=== PATIENT | male | born 1970 | race Caucasian/White ===

== ENCOUNTER 2017-12-21 08:55 | Emergency (ER) | payer OTHER ==
[2017-12-21] MEDS ORDERED: SODIUM CHLORIDE 0.9% 1,000 ML IV STA (09:07)
[2017-12-21] MEDS ORDERED: DEXAMETHASONE SOD PHOSPHATE 10 MG/ML 1 ML VIAL IV STA (09:14)
[2017-12-21] MEDS ORDERED: IPRATROPIUM-ALBUTEROL 3 ML NEB INHALATION STA (09:14)
[2017-12-21] MEDS ORDERED: ACETAMINOPHEN TAB 500 MG TAB PO STA (09:15)
--- NOTE | 2017-12-21 09:18 | ED ---
General Adult HPI - General Chief complaint: Syncope Stated complaint: syncope Time Seen by Provider: 12/21/17 09:06 Source: patient, RN notes reviewed Mode of arrival: wheelchair Limitations: no limitations - History of Present Illness Initial comments: 47-year-old male presenting with syncopal episode. Patient states he was at work, coworkers said that his eyes rolled back and said, he fell he did strike the back of his head when he fell. Patient was unconscious for approximately 1 minute. Patient states that over the past 3 days he said nausea vomiting diarrhea. Proximally 2-3 episodes of both vomiting and diarrhea daily. He states he was feeling better this morning and went to work. He is also had fever and chills, rhinorrhea and mild sore throat. Patient reports mild cough, he is a daily smoker. Denies any preceding chest pain or palpitations. He does state he gets chest pain from time to time which his primary care physician is aware of. Denies abdominal pain. - Related Data Home Medications Medication Instructions Recorded Confirmed Valsartan/Hydrochlorothiazide 1 tab PO DAILY 12/21/17 12/21/17 [Diovan Hct 160-25 mg Tablet] Previous Rx's Medication Instructions Recorded Albuterol Inhaler [Ventolin Hfa 1 - 2 puff INHALATION Q4HR PRN #1 12/21/17 Inhaler] inhaler Allergies Allergy/AdvReac Type Severity Reaction Status Date / Time No Known Allergies Allergy Verified 12/21/17 09:53 Review of Systems ROS Statement: Those systems with pertinent positive or pertinent negative responses have been documented in the HPI. ROS Other: All systems not noted in ROS Statement are negative. Past Medical History Past Medical History: Hypertension History of Any Multi-Drug Resistant Organisms: None Reported Past Surgical History: Hernia Repair, Tonsillectomy Past Psychological History: No Psychological Hx Reported Smoking Status: Current every day smoker Past Alcohol Use History: Daily Past Drug Use History: None Reported General Exam Limitations: no limitations General appearance: alert, in no apparent distress Head exam: Present: atraumatic, normocephalic Eye exam: Present: normal appearance, PERRL ENT exam: Present: other (Mild pharyngeal erythema, bilateral nasal congestion) Neck exam: Present: normal inspection. Absent: tenderness, meningismus Respiratory exam: Present: wheezes. Absent: respiratory distress Cardiovascular Exam: Present: regular rate, normal rhythm GI/Abdominal exam: Present: soft. Absent: distended, tenderness, guarding Extremities exam: Present: normal inspection, normal capillary refill. Absent: pedal edema, calf tenderness Back exam: Present: normal inspection, full ROM. Absent: tenderness Neurological exam: Present: alert, oriented X3, CN II-XII intact. Absent: motor sensory deficit Psychiatric exam: Present: normal affect, normal mood Skin exam: Present: warm, dry, intact. Absent: cyanosis, diaphoretic Course Vital Signs 12/21/17 12/21/17 12/21/17 09:03 09:54 10:03 Temperature 101.6 F H Pulse Rate 100 96 93 Respiratory 20 Rate Blood Pressure 130/76 O2 Sat by Pulse 99 Oximetry EKG Findings - EKG Comments: EKG Findings:: EKG: Normal sinus rhythm, ventricular rate 94, SC interval 124, QRS duration 82, QTC 425, no signs of acute ischemia Medical Decision Making - Medical Decision Making 47-year-old male presenting with flulike symptoms and syncopal episode. Patient clinically appears dehydrated. EKG is normal sinus with no ischemic changes. Chest x-ray obtained, shows active airway pattern, no focal pneumonia. Patient is wheezing on exam, given albuterol, and steroids. CBC within normal limits, sodium and chloride both mildly low. Patient is positive for influenza A. He is outside of treatment window. He is given IV hydration, he will stay home from work and rest, maintain oral hydration. Return with any worsening symptoms or worsening dyspnea. - Lab Data Result diagrams: 12/21/17 09:23 12/21/17 09:23 Lab Results 12/21/17 12/21/17 12/21/17 Range/Units 09:23 09:23 09:23 WBC 6.3 (3.8-10.6) k/uL RBC 5.30 (4.30-5.90) m/uL Hgb 16.3 (13.0-17.5) gm/dL Hct 45.3 (39.0-53.0) % MCV 85.6 (80.0-100.0) fL MCH 30.8 (25.0-35.0) pg MCHC 36.0 (31.0-37.0) g/dL RDW 12.6 (11.5-15.5) % Plt Count 184 (150-450) k/uL Neutrophils % 76 % Lymphocytes % 9 % Monocytes % 9 % Eosinophils % 2 % Basophils % 2 % Neutrophils # 4.8 (1.3-7.7) k/uL Lymphocytes # 0.6 L (1.0-4.8) k/uL Monocytes # 0.6 (0-1.0) k/uL Eosinophils # 0.1 (0-0.7) k/uL Basophils # 0.1 (0-0.2) k/uL Sodium 133 L (137-145) mmol/L Potassium 4.8 (3.5-5.1) mmol/L Chloride 94 L (98-107) mmol/L Carbon Dioxide 28 (22-30) mmol/L Anion Gap 11 mmol/L BUN 12 (9-20) mg/dL Creatinine 0.97 (0.66-1.25) mg/dL Est GFR (CKD-EPI)AfAm >90 (>60 ml/min/1.73 sqM) Est GFR (CKD-EPI)NonAf >90 (>60 ml/min/1.73 sqM) Glucose 105 H (74-99) mg/dL Calcium 9.3 (8.4-10.2) mg/dL Magnesium 1.8 (1.6-2.3) mg/dL Total Bilirubin 0.7 (0.2-1.3) mg/dL AST 59 (17-59) U/L ALT 49 (21-72) U/L Alkaline Phosphatase 56 (38-126) U/L Total Protein 7.1 (6.3-8.2) g/dL Albumin 4.2 (3.5-5.0) g/dL Urine Color Urine Appearance (Clear) Urine pH (5.0-8.0) Ur Specific [place] (1.001-1.035) Urine Protein (Negative) Urine Glucose (UA) (Negative) Urine Ketones (Negative) Urine Blood (Negative) Urine Nitrite (Negative) Urine Bilirubin (Negative) Urine Urobilinogen (<2.0) mg/dL Ur Leukocyte Esterase (Negative) Influenza Type A RNA Detected H (Not Detectd) Influenza Type B (PCR) Not Detected (Not Detectd) 12/21/17 Range/Units 09:23 WBC (3.8-10.6) k/uL RBC (4.30-5.90) m/uL Hgb (13.0-17.5) gm/dL Hct (39.0-53.0) % MCV (80.0-100.0) fL MCH (25.0-35.0) pg MCHC (31.0-37.0) g/dL RDW (11.5-15.5) % Plt Count (150-450) k/uL Neutrophils % % Lymphocytes % % Monocytes % % Eosinophils % % Basophils % % Neutrophils # (1.3-7.7) k/uL Lymphocytes # (1.0-4.8) k/uL Monocytes # (0-1.0) k/uL Eosinophils # (0-0.7) k/uL Basophils # (0-0.2) k/uL Sodium (137-145) mmol/L Potassium (3.5-5.1) mmol/L Chloride (98-107) mmol/L Carbon Dioxide (22-30) mmol/L Anion Gap mmol/L BUN (9-20) mg/dL Creatinine (0.66-1.25) mg/dL Est GFR (CKD-EPI)AfAm (>60 ml/min/1.73 sqM) Est GFR (CKD-EPI)NonAf (>60 ml/min/1.73 sqM) Glucose (74-99) mg/dL Calcium (8.4-10.2) mg/dL Magnesium (1.6-2.3) mg/dL Total Bilirubin (0.2-1.3) mg/dL AST (17-59) U/L ALT (21-72) U/L Alkaline Phosphatase (38-126) U/L Total Protein (6.3-8.2) g/dL Albumin (3.5-5.0) g/dL Urine Color Yellow Urine Appearance Clear (Clear) Urine pH 6.0 (5.0-8.0) Ur Specific [place] 1.018 (1.001-1.035) Urine Protein Trace H (Negative) Urine Glucose (UA) Negative (Negative) Urine Ketones Negative (Negative) Urine Blood Negative (Negative) Urine Nitrite Negative (Negative) Urine Bilirubin Negative (Negative) Urine Urobilinogen 2.0 (<2.0) mg/dL Ur Leukocyte Esterase Negative (Negative) Influenza Type A RNA (Not Detectd) Influenza Type B (PCR) (Not Detectd) Disposition Clinical Impression: Dehydration, Syncope due to orthostatic hypotension, Influenza A Disposition: HOME SELF-CARE Condition: Good Instructions: Influenza (ED), Syncope (ED) Prescriptions: Albuterol Inhaler [Ventolin Hfa Inhaler] 1 - 2 puff INHALATION Q4HR PRN #1 inhaler PRN Reason: Shortness Of Breath Referrals: Howard Byrnes MD [Primary Care Provider] - 1-2 days Time of Disposition: 10:30 Decision to Admit Reason: Admit from EC Decision Date: 12/21/17 Decision Time: 10:23
--- NOTE | 2017-12-21 09:45 | XR ---
EXAMINATION TYPE: XR chest 2V DATE OF EXAM: 12/21/2017 COMPARISON: Prior chest 05/05/2016 HISTORY: Cough, fever, congestion and 60 TECHNIQUE: Frontal and lateral views of the chest are obtained. FINDINGS: There is no focal air space opacity, pleural effusion, or pneumothorax seen. The cardiac silhouette size is within normal limits. The osseous structures are intact. There is bronchial wall thickening. IMPRESSION: Correlate for bronchitis, reactive airways disease.
[2017-12-21 09:53] LABS: Appearance,Urine Clear (Clear); Bilirubin,Urine Negative (Negative); Blood,Urine Negative (Negative); Color,Urine Yellow; Glucose,Urine (UA) Negative (Negative); Ketones,Urine Negative (Negative); Leukocyte Esterase,Urine Negative (Negative); Nitrite,Urine Negative (Negative); Protein,Urine Trace (Negative); Specific Gravity,Urine 1.018 (1.001-1.035)
[2017-12-21 09:54] LABS: Basophils # (A) 0.1 k/uL (0-0.2); Basophils % (A) 2 %; Eosinophils # (A) 0.1 k/uL (0-0.7); Eosinophils % (A) 2 %; HCT 45.3 % (39.0-53.0); HGB 16.3 gm/dL (13.0-17.5); Lymphocytes # (A) 0.6 k/uL (1.0-4.8); Lymphocytes % (A) 9 %; MCH 30.8 pg (25.0-35.0); MCV 85.6 fL (80.0-100.0); Mean Platelet Volume 7.6; Monocytes # (A) 0.6 k/uL (0-1.0); Monocytes % (A) 9 %; Neutrophils # (A) 4.8 k/uL (1.3-7.7); Neutrophils % (A) 76 %; Platelet Count 184 k/uL (150-450); RDW 12.6 % (11.5-15.5); WBC 6.3 k/uL (3.8-10.6)
[2017-12-21 10:03] LABS: ALT 49 U/L (21-72); AST 59 U/L (17-59); Albumin 4.2 g/dL (3.5-5.0); Alkaline Phosphatase 56 U/L (38-126); Anion Gap 11 mmol/L; Blood Urea Nitrogen 12 mg/dL (9-20); Calcium 9.3 mg/dL (8.4-10.2); Carbon Dioxide 28 mmol/L (22-30); Chloride 94 mmol/L (98-107); Glucose 105 mg/dL (74-99); Magnesium 1.8 mg/dL (1.6-2.3); Sodium 133 mmol/L (137-145); Total Bilirubin 0.7 mg/dL (0.2-1.3); Total Protein 7.1 g/dL (6.3-8.2)
[2017-12-21 10:06] LABS: Potassium 4.8 mmol/L (3.5-5.1)
[2017-12-21 10:17] LABS: Creatine Kinase 383 U/L (55-170)
[2017-12-21 10:28] LABS: Creatine Kinase MB <0.2 ng/mL (0.0-2.4); Troponin I <0.012 ng/mL (0.000-0.034)
[2017-12-21 10:34] LABS: INR 1.1 (<1.2); Partial Thromboplastin Time 24.5 sec (22.0-30.0); Prothrombin Time 10.4 sec (9.0-12.0)
[2017-12-21 10:48] VITALS: BP 124/61; PULSE 92; RESP 17; TEMP 99.3
== END 2017-12-21 10:46 | disposition home or self-care (01) ==
LOC: EC 08:55
DX: I95.1 Orthostatic hypotension (principal); E86.0 Dehydration; J10.1 Influenza due to other identified influenza virus with other respiratory manifestations; I10 Essential (primary) hypertension; F17.200 Nicotine dependence, unspecified, uncomplicated; Z79.899 Other long term (current) drug therapy
CPT/HCPCS: 36415; 94640; 93005; 80053; 82550; 82553; 83605; 83735; 84484; 85025; 85610; 85730; 81003; 87502; 71046; 99284; 96374; 96361; J1100

== ENCOUNTER 2018-10-16 02:46 | Observation (INO) | payer OTHER ==
[2018-10-16] MEDS ORDERED: MORPHINE SULFATE/PF 10MG/10ML VL IVP PRN (06:13)
[2018-10-16] MEDS ORDERED: NITROGLYCERIN SL TABS 0.4 MG TAB SUBLINGUAL PRN (06:15)
[2018-10-16 09:13] LABS: Creatine Kinase 122 U/L (55-170)
[2018-10-16 09:27] LABS: Creatine Kinase MB 0.3 ng/mL (0.0-2.4); Troponin I <0.012 ng/mL (0.000-0.034)
--- NOTE | 2018-10-16 10:20 | P.CRDCN ---
History of Present Illness Consult date: 10/16/18 Chief complaint: Chest pain History of present illness: This is a pleasant 48-year-old gentleman with a past medical history significant for hypertension as well as significant history of smoking was transferred from [facility] for further evaluation of chest discomfort. The patient was in his usual state of health yesterday when he started experiencing chest discomfort, in the mid of the chest, as a sharp kind of discomfort, of brief in duration, without any radiation to the arm or neck or shoulders, and without any assistive his symptoms of shortness of breath, dizziness, sweating, nausea or vomiting, or syncope. The EKG showed sinus rhythm without any ST or T-wave abnormalities. We only have one set of enzymes at this point. Currently the patient is chest pain-free. The patient does have hypertension and he stated that he was not taking his medication or regular basis because it does make him sick. Also he does smoke about 1 pack of cigarettes a day and he is working on smoking cessation. No immediate family members with coronary artery disease. Past Medical History Past Medical History: Hyperlipidemia, Hypertension History of Any Multi-Drug Resistant Organisms: None Reported Past Surgical History: Hernia Repair, Tonsillectomy Past Anesthesia/Blood Transfusion Reactions: No Reported Reaction Additional Past Anesthesia/Blood Transfusion Reaction / Comment(s): patient states that it takes him a long time to wake up after anesthesia Past Psychological History: No Psychological Hx Reported Smoking Status: Current every day smoker Past Alcohol Use History: Daily Additional Past Alcohol Use History / Comment(s): drinks 4 beers daily after work Past Drug Use History: None Reported - Past Family History Mother History Unknown: Yes Father Family Medical History: Diabetes Mellitus, Hypertension Brother(s) History Unknown: Yes Sister(s) Family Medical History: No Reported History Son(s) Family Medical History: No Reported History Daughter(s) Family Medical History: No Reported History Medications and Allergies Home Medications Medication Instructions Recorded Confirmed Type Valsartan/Hydrochlorothiazide 1 tab PO DAILY 12/21/17 10/16/18 History [Diovan Hct 160-25 mg Tablet] Allergies Allergy/AdvReac Type Severity Reaction Status Date / Time No Known Allergies Allergy Verified 10/16/18 05:19 Physical Exam Vitals: Vital Signs Temp Pulse Resp BP Pulse Ox 10/16/18 07:54 98.7 F 90 16 134/77 96 10/16/18 05:10 16 Intake and Output 10/15/18 10/16/18 10/16/18 22:59 06:59 14:59 Other: Voiding Method Toilet Toilet # Voids 1 Weight 91.6 kg - Constitutional General appearance: no acute distress - Respiratory Respiratory: bilateral: CTA - Cardiovascular Rhythm: regular Heart sounds: normal: S1, S2 Results Cardiac Enzymes 10/16/18 Range/Units 08:17 CK-MB (CK-2) 0.3 (0.0-2.4) ng/mL Troponin I <0.012 (0.000-0.034) ng/mL Current Medications Generic Name Dose Route Start Last Admin Trade Name Freq PRN Reason Stop Dose Admin Aspirin 325 mg 10/16/18 09:00 Aspirin PO DAILY ÁNGEL Morphine Sulfate 4 mg 10/16/18 06:13 Morphine Sulfate IVP Q4HR PRN Chest Pain Nitroglycerin 0.4 mg 10/16/18 06:15 Nitrostat SUBLINGUAL Q5M PRN Chest Pain Intake and Output 10/15/18 10/16/18 10/16/18 22:59 06:59 14:59 Other: Voiding Method Toilet Toilet # Voids 1 Weight 91.6 kg Assessment and Plan Assessment: Assessment #1 atypical chest discomfort #2 hypertension #3 smoking Plan #1 rule out acute coronary event. I will follow-up with the serial cardiac enzymes. #2 if the ACS was ruled out, I will schedule the patient to undergo stress echocardiogram #3 follow-up with the patient. Thank you for allowing us participate in the care of the patient and we'll continue following up with him
[2018-10-16] MEDS: ASPIRIN 325 MG TAB PO SCH (10:42)
[2018-10-16 11:21] LABS: Cholesterol 198 mg/dL (<200); HDL Cholesterol 29 mg/dL (40-60); Triglycerides 412 mg/dL (<150)
[2018-10-16 15:45] LABS: Creatine Kinase 111 U/L (55-170)
[2018-10-16 15:58] LABS: Creatine Kinase MB 0.3 ng/mL (0.0-2.4); Troponin I <0.012 ng/mL (0.000-0.034)
--- NOTE | 2018-10-16 16:40 | P.HPIM ---
History of Present Illness H&P Date: 10/16/18 Chief Complaint: Chest pain Mr. Israel is a 48-year-old male with a past medical history of hypertension, smoking coming into the hospital with a chief complaint of chest discomfort. The patient has been transferred from [facility] due to ongoing chest pain. Patient states that he was trying to get some rest last night when he felt the chest pain. The chest pain is mostly on the left side of the chest that was radiating all to the precordium. The pain lasted for few minutes. No radiation to the neck or shoulder. Patient denies having any difficulty in breathing at that time. But states that he felt dizzy and almost fell but caught himself without falling with the help of a table. Then he waited for his to get back from work and decided to go to the hospital. Risk factors include smoking for the past 20 years. He has been smoking 2 packs per day but currently only one pack a day. Patient is noncompliant with his hypertensive medications. He states that he does not have a primary care physician to follow-up for his medications. Patient denies having any family history of coronary artery disease. Review of Systems REVIEW OF SYSTEMS: PSYCH: Normal psychiatric exam NEURO:No c/o weakness of the extremties, No facial droop, No speech abnormalities. VASCULAR: Peripheral nervous system within the normal limits no edema HEMATOLOGIC: No history of easy bleeding and bruising . No recent infections . RESPIRATORY: No cough, No SOB, No chest discomfort. IMMUNE: No infections INTEGUMENT: no rashes OPHTHALMOLOGIC: No blurry vision and no eye discharge : No dysuria or hematuria CARDIAC: As per HPI MUSCULOSKELETAL : No Aches or pains in the joints or muscles. GI: No abdominal pain, Nausea or vomiting. No constipation or diarrhea. Past Medical History Past Medical History: Hyperlipidemia, Hypertension History of Any Multi-Drug Resistant Organisms: None Reported Past Surgical History: Hernia Repair, Tonsillectomy Past Anesthesia/Blood Transfusion Reactions: No Reported Reaction Additional Past Anesthesia/Blood Transfusion Reaction / Comment(s): patient states that it takes him a long time to wake up after anesthesia Past Psychological History: No Psychological Hx Reported Smoking Status: Current every day smoker Past Alcohol Use History: Daily Additional Past Alcohol Use History / Comment(s): drinks 4 beers daily after work Past Drug Use History: None Reported - Past Family History Mother History Unknown: Yes Father Family Medical History: Diabetes Mellitus, Hypertension Brother(s) History Unknown: Yes Sister(s) Family Medical History: No Reported History Son(s) Family Medical History: No Reported History Daughter(s) Family Medical History: No Reported History Medications and Allergies Home Medications Medication Instructions Recorded Confirmed Type Valsartan/Hydrochlorothiazide 1 tab PO DAILY 12/21/17 10/16/18 History [Diovan Hct 160-25 mg Tablet] Allergies Allergy/AdvReac Type Severity Reaction Status Date / Time No Known Allergies Allergy Verified 10/16/18 05:19 Physical Exam Vitals: Vital Signs Temp Pulse Pulse Resp BP Pulse Ox 10/16/18 15:08 98.2 F 98 16 154/85 10/16/18 12:39 69 10/16/18 11:00 98.6 F 83 15 155/87 98 10/16/18 07:54 98.7 F 90 16 134/77 96 10/16/18 05:10 16 Intake and Output 10/16/18 10/16/18 10/16/18 06:59 14:59 22:59 Intake Total 720 Balance 720 Intake: Oral 720 Other: Voiding Method Toilet Toilet Toilet # Voids 1 1 Weight 91.6 kg GENERAL EXAM GEN. APPEARANCE: alert, in no apparent distress HEAD EXAM: atraumatic, normocephalic, normal inspection EYE EXAM: normal appearance, PERRL, EOMI. Absent: scleral icterus, conjunctival injection, periorbital swelling ENT EXAM: normal exam, mucous membranes moist NECK EXAM: normal inspection. Absent: tenderness, meningismus, full ROM, lymphadenopathy RESPIRATORY EXAM: normal lung sounds bilaterally. Absent: respiratory distress , wheezes, rales, rhonchi, stridor CARDIOVASCULAR EXAM: regular rate, normal rhythm, normal heart sounds. Absent : systolic murmur, diastolic murmur, rubs, gallop, clicks GI/ABDOMINAL EXAM: soft, normal bowel sounds. Absent: distended, tenderness, guarding, rebound, rigid EXTREMITIES EXAM: normal inspection, full ROM, normal capillary refill. Absent : tenderness, pedal edema, joint swelling, calf tenderness BACK EXAM: normal inspection NEUROLOGICAL EXAM: alert, oriented X3, no focal deficits PSYCHIATRIC EXAM: normal affect, normal mood SKIN EXAM: warm, dry, intact, normal color. Absent: rash Results Labs: Abnormal Lab Results - Last 24 Hours (Table) 10/16/18 Range/Units 08:17 Triglycerides 412 H (<150) mg/dL HDL Cholesterol 29 L (40-60) mg/dL Thrombosis Risk Factor Assmnt - Choose All That Apply Any of the Below Risk Factors Present?: Yes Each Factor Represents 1 point: Age 41-60 years, Obesity (BMI >25) Other Risk Factors: No Other congenital or acquired thrombophilia - If yes, enter type in comment: No Thrombosis Risk Factor Assessment Total Risk Factor Score: 2 Thrombosis Risk Factor Assessment Level: Low Risk Assessment and Plan Assessment: ASSESSMENT Atypical chest pain Hypertension Current active smoker PLAN: Patient has risk factors of hypertension and smoking so he has been admitted to rule out acute coronary syndrome. Patient will have serial troponins and EKGs. Cardiology on board. Patient might need stress echocardiogram if the cardiac enzymes are within normal limits. Extensively counseled the patient on quitting smoking. Further recommendations depending on the progress of the patient.
[2018-10-16 17:48] LABS: Basophils # (A) 0.1 k/uL (0-0.2); Basophils % (A) 1 %; Eosinophils # (A) 0.3 k/uL (0-0.7); Eosinophils % (A) 4 %; HCT 46.1 % (39.0-53.0); HGB 15.5 gm/dL (13.0-17.5); Lymphocytes # (A) 2.2 k/uL (1.0-4.8); Lymphocytes % (A) 28 %; MCHC 33.6 g/dL (31.0-37.0); MCV 92.1 fL (80.0-100.0); Mean Platelet Volume 7.9; Monocytes # (A) 0.4 k/uL (0-1.0); Monocytes % (A) 5 %; Neutrophils # (A) 4.9 k/uL (1.3-7.7); Neutrophils % (A) 61 %; Platelet Count 194 k/uL (150-450); RBC 5.01 m/uL (4.30-5.90)
[2018-10-16 18:00] LABS: ALT 32 U/L (21-72); AST 22 U/L (17-59); Albumin 3.7 g/dL (3.5-5.0); Alkaline Phosphatase 50 U/L (38-126); Anion Gap 5 mmol/L; Blood Urea Nitrogen 13 mg/dL (9-20); Calcium 9.2 mg/dL (8.4-10.2); Carbon Dioxide 26 mmol/L (22-30); Chloride 109 mmol/L (98-107); Glucose 130 mg/dL (74-99); Potassium 4.6 mmol/L (3.5-5.1); Sodium 140 mmol/L (137-145); Total Bilirubin 0.5 mg/dL (0.2-1.3); Total Protein 6.3 g/dL (6.3-8.2)
[2018-10-16 19:12] VITALS: RESP 18
[2018-10-16 20:57] LABS: Creatine Kinase 175 U/L (55-170)
[2018-10-16 21:13] LABS: Creatine Kinase MB 0.4 ng/mL (0.0-2.4); Troponin I <0.012 ng/mL (0.000-0.034)
[2018-10-17] MEDS ORDERED: HYDROCHLOROTHIAZIDE 25 MG TAB PO SCH (09:00)
[2018-10-17] MEDS ORDERED: LOSARTAN 50 MG TAB PO SCH (09:00)
[2018-10-17] MEDS ORDERED: VALSARTAN 160 MG TAB PO SCH (09:00)
--- NOTE | 2018-10-17 10:50 | P.PN ---
Subjective This is a pleasant 48-year-old male past medical history significant for hypertension, dyslipidemia, chronic nicotine dependence and daily alcohol use. He continues to complain of ongoing episodes of an achy type sensation in the midsternal region with radiation to the left shoulder. These episodes occurred overnight intermittently lasting a few minutes each time with associated shortness of breath. The episodes subside on their own with no specific alleviating factor. He denies palpitations or dizziness. He states he has not been taking his Diovan as prescribed secondary to causing symptoms of dizziness , generalized fatigue and nausea. Blood pressure this morning 175/89 heart rate 64 afebrile maintaining oxygen saturation on room air. GENERAL: Well-appearing, well-nourished and in no acute distress. NECK: Supple without JVD or thyromegaly. LUNGS: Breath sounds clear to auscultation bilaterally. Respiration equal and unlabored. No wheezes, rales or rhonchi. HEART: Regular rate and rhythm without murmurs, rubs or gallops. S1 and S2 heard. EXTREMITIES: Normal range of motion, no edema. No clubbing or cyanosis. Peripheral pulses intact. ASSESSMENT Chest pain, atypical. An acute coronary event has been ruled out with no EKG evidence of ischemia and negative cardiac enzymes. Hypertension Dyslipidemia Chronic nicotine dependence Daily alcohol abuse PLAN An acute coronary event has been ruled out. Obtain 2D echocardiogram and doppler study to assess cardiac structure and function. Perform stress echocardiogram to assess for stress induced ischemia. Discontinue Diovan and start him on losartan 25 mg daily. Recommend lifestyle modifications for lowering of triglycerides and cholesterol. Smoking and alcohol cessation recommended. If stress test is negative he is stable from a cardiac perspective. Follow up with Dr. Guillory upon discharge. Nurse Practitioner note has been reviewed, I agree with a documented findings and plan of care. Patient was seen and examined. Objective - Vital Signs Vital signs: Vital Signs Temp 97.9 F 10/17/18 07:15 Pulse 64 10/17/18 07:15 Resp 18 10/17/18 07:15 BP 175/89 10/17/18 07:15 Pulse Ox 98 10/17/18 07:15 Intake & Output 10/16/18 10/17/18 10/17/18 18:59 06:59 18:59 Intake Total 720 Balance 720 Intake: Oral 720 Other: Voiding Method Toilet Toilet # Voids 1 2 - Labs CBC & Chem 7: 10/16/18 17:30 10/16/18 17:30 Labs: Abnormal Lab Results - Last 24 Hours (Table) 10/16/18 10/16/18 10/16/18 Range/Units 08:17 17:30 19:56 Chloride 109 H (98-107) mmol/L Glucose 130 H (74-99) mg/dL Total Creatine Kinase 175 H (55-170) U/L Triglycerides 412 H (<150) mg/dL HDL Cholesterol 29 L (40-60) mg/dL
[2018-10-17 11:54] VITALS: BP 167/100; PULSE 81; TEMP 98.1
[2018-10-17] MEDS: ASPIRIN 325 MG TAB PO SCH (11:59)
--- NOTE | 2018-10-17 17:05 | ECHOF ---
Referral Reason:cp, sob MEASUREMENTS -------- HEIGHT: 175.3 cm WEIGHT: 91.2 kg BP: 175/89 IVSd: 1.2 cm (0.6 - 1.1) LVIDd: 4.5 cm (3.9 - 5.3) LVPWd: 1.5 cm (0.6 - 1.1) IVSs: 1.5 cm LVIDs: 3.7 cm LVPWs: 1.5 cm LA Diam: 3.4 cm (2.7 - 3.8) RVIDd: 2.6 cm (< 3.3) LAESV Index (A-L): 23.01 ml/m Ao Diam: 3.2 cm (2.0 - 3.7) LA Diam: 4.4 cm (2.7 - 3.8) AV Cusp: 2.2 cm (1.5 - 2.6) EPSS: 0.2 cm MV E Osbaldo: 0.63 m/s MV DecT: 155 ms MV A Osbaldo: 0.49 m/s MV E/A Ratio: 1.29 RAP: 5.00 mmHg RVSP: 17.74 mmHg MV EF SLOPE: 181.02 mm/s (70 - 150) MV EXCURSION: 25.68 mm (> 18.000) FINDINGS -------- Sinus rhythm. This was a technically good study. The left ventricular size is normal. There is mild concentric left ventricular hypertrophy. Overa ll left ventricular systolic function is normal with, an EF between 55 - 60 %. The right ventricle is normal in size. The left atrial size is normal. The right atrial size is normal. The aortic valve is trileaflet, and appears structurally normal. No aortic stenosis or regurgitation. Mild mitral annular calcification present. Mild mitral regurgitation is present. Mild tricuspid regurgitation present. There is no evidence of pulmonary hypertension. The right v entricular systolic pressure, as measured by Doppler, is 17.74mmHg. There is no pulmonic regurgitation present. The aortic root size is normal. There is no pericardial effusion. CONCLUSIONS -------- 1. The left ventricular size is normal. 2. There is mild concentric left ventricular hypertrophy. 3. Overall left ventricular systolic function is normal with, an EF between 55 - 60 %. 4. The right ventricle is normal in size. 5. The left atrial size is normal. 6. The right atrial size is normal. 7. The aortic valve is trileaflet, and appears structurally normal. No aortic stenosis or regurgitati on. 8. Mild mitral annular calcification present. 9. Mild mitral regurgitation is present. 10. Mild tricuspid regurgitation present. 11. There is no evidence of pulmonary hypertension. 12. The right ventricular systolic pressure, as measured by Doppler, is 17.74mmHg. 13. There is no pulmonic regurgitation present. 14. The aortic root size is normal. 15. There is no pericardial effusion. INJECTION MOLDER: Ebony Zarate RDCS
--- NOTE | 2018-10-17 23:50 | P.DS ---
Providers Date of admission: 10/16/18 04:38 Expected date of discharge: 10/17/18 Attending physician: Corine Gupta Consults: 10/16/18 06:06 Consult Physician Routine Consulting Provider: Sergio Andres Consult Reason/Comments: chest pain Do you want consulting provider notified?: Yes, Notify in am Primary care physician: Stated None Hospital Course: Mr. Israel is a 48-year-old male with a past medical history of hypertension, smoking coming into the hospital with a chief complaint of chest discomfort. The patient has been transferred from [facility] due to ongoing chest pain. Patient states that he was trying to get some rest last night when he felt the chest pain. The chest pain is mostly on the left side of the chest that was radiating all to the precordium. The pain lasted for few minutes. No radiation to the neck or shoulder. Patient denies having any difficulty in breathing at that time. But states that he felt dizzy and almost fell but caught himself without falling with the help of a table. Then he waited for his to get back from work and decided to go to the hospital. Risk factors include smoking for the past 20 years. He has been smoking 2 packs per day but currently only one pack a day. Patient is noncompliant with his hypertensive medications. He states that he does not have a primary care physician to follow-up for his medications. Patient denies having any family history of coronary artery disease. On 10/17/18 - Pt had the stress test done this morning. Results were still pending and pt left AMA. DISCHARGE DIAGNOSIS Atypical chest pain Hypertension Current active smoker PATIENT LEFT THE HOSPITAL AGAINST MEDICAL ADVICE . Patient Condition at Discharge: Undetermined Plan - Discharge Summary Discharge Rx Participant: No New Discharge Prescriptions: New Losartan [Cozaar] 50 mg PO DAILY #90 tab Discontinued Valsartan/Hydrochlorothiazide [Diovan Hct 160-25 mg Tablet] 1 tab PO DAILY Discharge Medication List Losartan [Cozaar] 50 mg PO DAILY #90 tab 10/17/18 [Rx] Follow up Appointment(s)/Referral(s): Sergio Andres MD [STAFF PHYSICIAN] - 2 Weeks Discharge Disposition: Left Against Medical Advice
--- NOTE | 2018-10-18 10:41 | ECHOS ---
Stress Test Note Stress Test Results/Findings: Exam Performed: stress echo exercise Exam Date: 10/17/18 Reason for Exam: CHEST PAIN Height: 5 ft 9 in Weight: 91.6 kg Protocol: EARNEST Stage: 3 Duration of Exercise: 7:00 Resting Heart Rate: 78 Resting Blood Pressure: 139/85 Maximum Achieved Heart Rate: 157 Maximum Achieved Blood Pressure: 198/91 85% PMHR: 146 100% PMHR: 172 METS: 8.5 Technologist Comment: Stress Test Results/Findings: Baseline heart is 78 beats a minute, Baseline blood pressure 139/86. His mercury Baseline twelve-lead ECG shows normal sinus rhythm with [address] elevation consistent with early repolarization abnormalities inferolaterally Patient exercised on a Earnest protocol for 7 minutes achieving a peak heart rate of 157 beats a minute normal blood pressure response to exercise There is no ECG and severe ischemia no arrhythmias are noted Baseline 2-D echo showed normal LV size and systolic function without segmental wall motion abnormalities At peak exercise there was excellent augmentation overall LV contractility without development of any formal motion abnormalities At recovery region global LV systolic function remained normal Impression Average exercise capacity No ECG or echocardiographic evidence for ischemia MTDD
== END 2018-10-17 15:05 | disposition left against medical advice (07) ==
LOC: 1SOBS 04:38
PROVIDERS: ADMIT Internal Medicine; ATTEND Internal Medicine
DX: R07.89 Other chest pain (principal); I10 Essential (primary) hypertension; E78.5 Hyperlipidemia, unspecified; F17.210 Nicotine dependence, cigarettes, uncomplicated; F10.10 Alcohol abuse, uncomplicated; E66.9 Obesity, unspecified; Z68.29 Body mass index [BMI] 29.0-29.9, adult; Z79.899 Other long term (current) drug therapy; Z91.14 Patient's other noncompliance with medication regimen; Z83.3 Family history of diabetes mellitus
CPT/HCPCS: 93306; 93351; 83880; 80061; 80053; 82550; 82553; 84484; 85025; G0378 ×2; G0379